=== PATIENT | female | born 1985 | race Native Hawaiian/Other Pacific Islander ===

== ENCOUNTER 2017-01-30 08:55 | Outpatient (CLI) | payer OTHER ==
[2017-01-30 09:23] LABS: PLATELET COUNT 239 K/uL (152-353)
[2017-01-30 09:45] LABS: SODIUM 139 mmol/L (136-145)
== END 2017-01-30 19:28 | disposition home or self-care (01) ==
LOC: LABW 08:55
PROVIDERS: Family Medicine
DX: R53.83 Other fatigue (principal); E55.9 Vitamin D deficiency, unspecified
CPT/HCPCS: 80053; 82306; 82607; 82670; 82746; 83001; 83002; 84402; 84403; 84439; 84443; 85027

== ENCOUNTER 2018-10-08 08:13 | Outpatient (CLI) | payer OTHER ==
[2018-10-08 09:28] LABS: PLATELET COUNT 244 K/uL (152-353)
[2018-10-08 09:46] LABS: POTASSIUM 4.2 mmol/L (3.6-5.2)
== END 2018-10-08 20:59 | disposition home or self-care (01) ==
LOC: LABW 08:13
PROVIDERS: Family Medicine
DX: E05.90 Thyrotoxicosis, unspecified without thyrotoxic crisis or storm (principal); L65.9 Nonscarring hair loss, unspecified; R68.82 Decreased libido; E66.9 Obesity, unspecified; E55.9 Vitamin D deficiency, unspecified; E53.8 Deficiency of other specified B group vitamins
CPT/HCPCS: 36415; 80053; 80061; 82306; 82607; 82670; 83001; 84402; 84403; 84436; 84443; 84481; 85027; 86376

== ENCOUNTER 2018-12-15 13:18 | Outpatient (CLI) | payer OTHER | END 2018-12-15 19:16 | disposition home or self-care (01) | LOC: LABW 13:18 | DX: E03.9 Hypothyroidism, unspecified (principal) | CPT/HCPCS: 36415; 84443 ==

== ENCOUNTER 2019-05-27 12:48 | Outpatient (CLI) | payer OTHER ==
[2019-05-27 13:39] LABS: PLATELET COUNT 240 K/uL (152-353)
[2019-05-27 13:48] LABS: POTASSIUM 3.7 mmol/L (3.6-5.2)
== END 2019-05-27 20:18 | disposition home or self-care (01) ==
LOC: LABW 12:48
PROVIDERS: Nurse Practitioner Family
DX: L65.9 Nonscarring hair loss, unspecified (principal)
CPT/HCPCS: 36415; 80053; 82306; 82626; 82728; 83540; 83550; 84270; 84402; 84403; 84439; 84443; 85027; 86038; 86376

== ENCOUNTER 2019-09-08 15:53 | Outpatient (CLI) | payer OTHER | END 2019-09-08 19:32 | disposition home or self-care (01) | LOC: LABW 15:53 | DX: E03.9 Hypothyroidism, unspecified (principal) | CPT/HCPCS: 36415; 84443 ==

== ENCOUNTER 2019-11-05 08:13 | Outpatient (CLI) | payer OTHER | END 2019-11-05 23:01 | disposition home or self-care (01) | LOC: LABW 08:13 | DX: Z79.890 Hormone replacement therapy (principal) | CPT/HCPCS: 36415; 82670; 83001; 84402; 84403; 84436; 84481 ==

== ENCOUNTER 2020-01-19 09:29 | Outpatient (CLI) | payer OTHER | END 2020-01-19 19:43 | disposition home or self-care (01) | LOC: RAD 09:29 | DX: M54.12 Radiculopathy, cervical region (principal); M54.5 Low back pain; E03.9 Hypothyroidism, unspecified; Z13.1 Encounter for screening for diabetes mellitus | CPT/HCPCS: 36415; 83036; 84439; 84443; 84481 ==

== ENCOUNTER 2020-03-01 12:49 | Outpatient (CLI) | payer OTHER | END 2020-03-01 20:15 | disposition home or self-care (01) | LOC: EMG 12:49 | DX: M54.12 Radiculopathy, cervical region (principal) | CPT/HCPCS: 95861; 95912 ==

== ENCOUNTER 2020-05-01 10:37 | Outpatient (CLI) | payer OTHER | END 2020-05-01 23:15 | disposition home or self-care (01) | LOC: LABW 10:37 | PROVIDERS: ATTEND Family Medicine | DX: R53.83 Other fatigue (principal); R68.82 Decreased libido | CPT/HCPCS: 36415; 82670; 83001; 84402; 84403; 84436; 84481 ==

== ENCOUNTER 2022-04-15 14:54 | Outpatient (CLI) | payer OTHER | END 2022-04-15 19:38 | disposition home or self-care (01) | LOC: MAMMO 14:54 | PROVIDERS: ATTEND Family Medicine | DX: Z12.31 Encounter for screening mammogram for malignant neoplasm of breast (principal) ==